=== PATIENT | female | born 1985 | race Caucasian/White ===

== ENCOUNTER 2018-02-17 16:06 | Emergency (ER) | payer OTHER ==
[~2018-02-17] VITALS: Ht 160 cm; Wt 68.0 kg
[~2018-02-17 16:06] MED LIST: CLEOCIN HCL300 MG PO; DOXYCYCLINE 10100 MG PO; NOHOMEMEDICATIONS; PERCOCET 5-3251 EACH PO; PRENATAL TABLE1 EAC3 PO; VICODIN 5-5001 EACH PO
[2018-02-17 16:52] VITALS: BP 131/64
[2018-02-17] MEDS ORDERED: CLEOCIN HCL150 MG PO (17:23)
[2018-02-17] MEDS ORDERED: TRIAMCINOLONE A15 G3 TOP (17:23)
== END 2018-02-17 17:30 | disposition home or self-care (01) ==
LOC: ER 16:06
DX: L01.00 Impetigo, unspecified (principal); Z88.4 Allergy status to anesthetic agent; Z88.2 Allergy status to sulfonamides

== ENCOUNTER 2019-05-12 19:18 | Emergency (ER) | payer OTHER ==
[~2019-05-12] VITALS: Ht 160 cm; Wt 65.8 kg
[~2019-05-12 19:18] MED LIST changes: +CLEOCIN HCL150 MG PO; +TRIAMCINOLONE A15 G3 TOP
[2019-05-12 20:18] LABS: URINE BILIRUBIN NEGATIVE (Negative); URINE BLOOD NEGATIVE (Negative); URINE CLARITY CLOUDY; URINE COLOR YELLOW; URINE GLUCOSE-RANDOM* NEGATIVE (Negative); URINE KETONES NEGATIVE (Negative); URINE LEUKOCYTES-REFLEX NEGATIVE (Negative); URINE NITRITE-REFLEX NEGATIVE (Negative); URINE PROTEIN (DIPSTICK) NEGATIVE (Negative); URINE UROBILINOGEN 0.2 E.U./dl (0.2-1.0)
[2019-05-12 20:37] VITALS: BP 104/61
== END 2019-05-12 20:45 | disposition home or self-care (01) ==
LOC: ER 19:18
PROVIDERS: Physician Assistant
DX: N89.8 Other specified noninflammatory disorders of vagina (principal); R10.31 Right lower quadrant pain; Z20.2 Contact with and (suspected) exposure to infections with a predominantly sexual mode of transmission